=== PATIENT | female | born 1970 | race Caucasian/White ===

== ENCOUNTER 2016-04-22 10:44 | Emergency (ER) | payer MEDICAID, OTHER ==
[~2016-04-22] VITALS: Wt 56.0 kg
[~2016-04-22 10:44] MED LIST: PREN1TAB12 PO
[2016-04-22 11:46] LABS: URINE BLOOD (Dip) POC 1+ (NEGATIVE)
[2016-04-22] MEDS ORDERED: NITR-58 PO (11:58)
[2016-04-22] MEDS ORDERED: METR70GE15 VAG (11:58)
--- NOTE | 2016-04-22 18:51 | ERD ---
DATE OF SERVICE: 04/22/2016 HISTORY OF PRESENT ILLNESS: The patient is a 45-year-old female coming in complaining of vaginal it yonatan. Patient states it has been going on for the last 2 months. She has been using clotrimazole with no alleviation of her symptoms. She states that she has never had this before. Her last episo de of intercourse was 1 month ago. She is not currently menstruating and has not had her menstrual period in about 2 months. She had no history of STDs in the past. No dysuria. PAST MEDICAL HISTORY: Denies any medical problems. ALLERGIES: DENIES ALLERGIES TO MEDICATIONS. HOSPITALIZATIONS: Denies. SOCIAL HISTORY: Denies. REVIEW OF SYSTEMS: A 12-point review of systems was done. Refer to HPI for positives, all other sy stems negative. PHYSICAL EXAMINATION VITAL SIGNS: Temperature is 97.4, pulse 87, blood pressure is 156/75, respiratory 17, O2 saturation 100% on room air. Pain intensity is 7/10. GENERAL: The patient is well-appearing, well-nourished, no acute distress. HEENT: Atraumatic. Conjunctivae are pink. Pupils equal, round, and reactive to light. There is no s cleral icterus. Tympanic membranes clear bilaterally. Oropharynx clear. No nystagmus or photophobia . CHEST: Clear to auscultation bilaterally. There are no rales, wheezes or rhonchi. HEART: Regular rate and rhythm. No murmurs, clicks, rubs or gallops. No S3 or S4. ABDOMEN: Soft, nontender and nondistended. Good bowel sounds. No rebound or guarding. No gross mauro tonitis. No gross organomegaly or masses. No Blanton sign or McBurney point tenderness. SKIN: There is no apparent rash or petechia. The skin is warm and dry. PELVIC: The patient did not have CMT. There are no adnexal masses. Her os is closed, cervix intac t. No friability noted to the cervix. There is white, milky discharge noted within the vaginal vau lt. No lesions or ulcerations. EMERGENCY ROOM COURSE: The patient had a urine dip checked in the ER. Patient's urine showed trace leukocytes with 1+ blood, negative nitrites, negative ketones, negative glucose and negative protei n. Patient's urine was sent for culture. Urine was negative. DIAGNOSES: 1. Urinary tract infection. 2. Bacterial vaginosis. MEDICAL DECISION MAKING: I have low suspicion for yeast infection as patient does not have cottage cheese white discharge. I have a low suspicion for PID. The patient does not have cervical motion tenderness, low suspicion for pelvic emergency. The patient's exam is nonconcerning. DISCHARGE: The patient is discharged stable. Patient is given a prescription for MetroGel and Macr obid and told to follow up with primary care within 1 to 2 days for reevaluation. The patient was t old if symptoms progress or worsen to return to the ER. All other questions answered at time of dis charge. Discharge summary given at the time of departure. Patient given strict ER precautions. Dictated By: VERÓNICA OLSEN for DANIELLE FIGUEROA/JEWELL Conf#: [id number] DID#: [id number]
== END 2016-04-22 12:28 | disposition home or self-care (01) ==
LOC: FTE 10:44
DX: N39.0 Urinary tract infection, site not specified (principal); N76.0 Acute vaginitis
CPT/HCPCS: 81003; 87591; Z7502; 99284